=== PATIENT | female | born 1960 | race Caucasian/White ===

== ENCOUNTER → 2017-09-09 | Outpatient (CLI) | payer MEDICARE ==
--- NOTE | 2017-09-09 16:11 | BD ---
EXAMINATION TYPE: MG DEXA axial skeleton. DATE OF EXAM: 09/09/2017 COMPARISON: NONE CLINICAL HISTORY: post menopausal Height: 5' Weight: 175 FRAX RISK QUESTIONS: Alcohol (3 or more units per day): no Family History (Parent hip fracture): no Glucocorticoids (More than 3mos): no (Ex: prednisone, prednisolone, methylprednisolone, dexamethasone, and hydrocortisone). History of Fracture in Adulthood: yes Secondary Osteoporosis: 1. Type 1 Diabetes: no 2. Hyperthyroidism: no 3. Menopause before 45: no 4. Malnutrition: no 5. Chronic liver disease: no Rheumatoid Arthritis: no Current Tobacco Use: no RISK FACTORS HISTORY OF: History of Wrist Fracture: rt When: age 47 Postmenopausal woman: MEDICATIONS: Additional Medications: type 2 diabetes, cholesterol Additional History: EXAM MEASUREMENTS: Bone mineral densitometry was performed using the [employer] System. Bone mineral density as measured about the Lumbar spine is: ----- L1-L4(G/cm2): 1.404 T Score Values are as follows: ----- L2: 1.9 ----- L3: 2.0 ----- L4: 1.7 ----- L1-L4: 1.9 Bone mineral density about the R hip (g/cm2): 1.080 Bone mineral density about the L hip (g/cm2): 1.099 T Score values are as follows: -----R Neck: 0.3 -----L Neck: 0.4 -----R Total: 2.9 -----L Total: 2.6 IMPRESSION: Normal (Values between +1 and -1 indicate normal bone mass). Consider repeating this study in 5 year s or sooner if there is some new clinical indication. NOTE: T-SCORE=SD OF THE YOUNG ADULT MEAN.
--- NOTE | 2017-09-10 14:32 | MM ---
Reason for exam: screening (asymptomatic). Last mammogram was performed 1 year and 2 months ago. History: Patient is postmenopausal and is nulliparous. Taking hormonal contraceptives for 31 years beginning at age 20. Physical Findings: A clinical breast exam by your physician is recommended on an annual basis and results should be correlated with mammographic findings. MG 3D Screening Mammo W/Cad Bilateral CC and MLO view(s) were taken. Prior study comparison: July 21, 2016, bilateral MG 3d screening mammo w/cad. July 18, 2015, bilateral MG screening mammo w CAD. The breast tissue is extremely dense which could obscure a lesion on mammography. No significant changes when compared with prior studies. ASSESSMENT: Benign, BI-RAD 2 RECOMMENDATION: Routine screening mammogram of both breasts in 1 year.
== END | disposition home or self-care (01) ==
LOC: RADMAMWWP 13:42
PROVIDERS: ATTEND Family Medicine
DX: Z12.31 Encounter for screening mammogram for malignant neoplasm of breast (principal); Z78.0 Asymptomatic menopausal state
CPT/HCPCS: 77080; 77063; G0202

== ENCOUNTER → 2019-01-24 | Outpatient (CLI) | payer MEDICARE ==
--- NOTE | 2019-01-26 09:10 | MM ---
Reason for exam: screening (asymptomatic). Last mammogram was performed 1 year and 5 months ago. History: Patient is postmenopausal and is nulliparous. Taking hormonal contraceptives for 31 years beginning at age 20. Physical Findings: A clinical breast exam by your physician is recommended on an annual basis and results should be correlated with mammographic findings. MG 3D Screening Mammo W/Cad Bilateral CC and MLO view(s) were taken. Prior study comparison: September 09, 2017, bilateral MG 3d screening mammo w/cad. July 21, 2016, bilateral MG 3d screening mammo w/cad. The breast tissue is heterogeneously dense. This may lower the sensitivity of mammography. No significant changes when compared with prior studies. ASSESSMENT: Negative, BI-RAD 1 RECOMMENDATION: Routine screening mammogram of both breasts in 1 year.
== END | disposition home or self-care (01) ==
LOC: RADMAMWWP 12:40
PROVIDERS: ATTEND Family Medicine
DX: Z12.31 Encounter for screening mammogram for malignant neoplasm of breast (principal)
CPT/HCPCS: 77063; 77067

== ENCOUNTER → 2021-06-10 | Outpatient (CLI) | payer MEDICARE ==
--- NOTE | 2021-06-11 08:35 | MM ---
Reason for exam: screening (asymptomatic). Last mammogram was performed 2 years and 4 months ago. History: Patient is postmenopausal and is nulliparous. Took hormonal contraceptives for 31 years beginning at age 20. Physical Findings: A clinical breast exam by your physician is recommended on an annual basis and results should be correlated with mammographic findings. MG Screening Mammo w CAD Bilateral CC and MLO view(s) were taken. Prior study comparison: January 24, 2019, bilateral MG 3d screening mammo w/cad. September 09, 2017, bilateral MG 3d screening mammo w/cad. The breast tissue is heterogeneously dense. This may lower the sensitivity of mammography. ASSESSMENT: Negative, BI-RAD 1 RECOMMENDATION: Routine screening mammogram of both breasts in 1 year.
== END | disposition home or self-care (01) ==
LOC: RADMAMWWP 12:09
PROVIDERS: ATTEND Family Medicine
DX: Z12.31 Encounter for screening mammogram for malignant neoplasm of breast (principal); Z78.0 Asymptomatic menopausal state; Z79.3 Long term (current) use of hormonal contraceptives
CPT/HCPCS: 77067

== ENCOUNTER → 2022-08-08 | Outpatient (CLI) | payer MEDICARE ==
--- NOTE | 2022-08-12 08:12 | MM ---
Reason for Exam: Screening (asymptomatic). Last mammogram was performed 1 year(s) and 2 month(s) ago. Patient History: Menarche at age 14. Patient has no children. Postmenopausal. Currently using Hormonal Contraceptives, beginning at age 20 for 31 years. Risk Values: Rossana 5 year model risk: 1.5%. NCI Lifetime model risk: 8.3%. Prior Study Comparison: 07/18/2015 Bilateral Screening Mammogram, [facility]. 07/21/2016 Bilateral Screening Mammogram, [facility]. 09/09/2017 Bilateral Screening Mammogram, [facility]. 01/24/2019 Bilateral Screening Mammogram, [facility]. 06/10/2021 Bilateral Screening Mammogram, [facility]. Tissue Density: The breast tissue is extremely dense which could obscure a lesion on mammography. Findings: Analyzed By CAD. There is no suspicious group of microcalcifications or new suspicious mass in either breast. Overall Assessment: Negative, BI-RAD 1 Management: Screening Mammogram of both breasts in 1 year. A clinical breast exam by your physician is recommended on an annual basis and results should be correlated with mammographic findings. Electronically signed and approved by: Reginaldo Alan DO
== END | disposition home or self-care (01) ==
LOC: RADMAMWWP 13:20
PROVIDERS: ATTEND Family Medicine
DX: Z12.31 Encounter for screening mammogram for malignant neoplasm of breast (principal); Z78.0 Asymptomatic menopausal state
CPT/HCPCS: 77063; 77067

== ENCOUNTER → 2024-08-22 | Outpatient (CLI) | payer MEDICARE ==
--- NOTE | 2024-08-22 15:10 | BD ---
EXAMINATION TYPE: Axial Bone Density DATE OF EXAM: 08/22/2024 CLINICAL HISTORY: 63 years old Female. ICD-10 CODE: Z78.0 ASYMPTOMATIC MENOPAUS Height: 59.7in Weight: 212lb FRAX RISK QUESTIONS: History of Fracture in Adulthood: yes Secondary Osteoporosis: RISK FACTORS HISTORY OF: History of Wrist Fracture: right wrist When: about 20 years ago Surgery to Spine/Hip(right/left)/Wrist (right/left): right wrist When: about 20 years ago MEDICATIONS: EXAM MEASUREMENTS: Bone mineral densitometry was performed using the [employer] System. Bone mineral density as measured about the Lumbar spine is: ----- L1-L4(G/cm2): 1.548 T Score Values are as follows: ----- L1: 4.7 ----- L2: 4.8 ----- L3: 2.7 ----- L4: 1.0 ----- L1-L4: 3.1 Z Score Values are as follows: ----- L1: 5.0 ----- L2: 5.1 ----- L3: 3.0 ----- L4: 1.3 ----- L1-L4: 3.4 Bone mineral density has: Increased 10.3% since study of: 09-09-17 Bone mineral density about the R hip (g/cm2): 1.287 Bone mineral density about the L hip (g/cm2): 1.292 T Score values are as follows: -----R Neck: -0.1 -----L Neck: 0.2 -----R Total: 2.2 -----L Total: 2.3 Z Score values are as follows: -----R Neck: 0.6 -----L Neck: 0.8 -----R Total: 2.5 -----L Total: 2.5 Bone mineral density has: Decreased -6.4% since study of: 09-09-17 FRAX%s: The graph provided illustrates a 9.7% chance for a major osteoporotic fx and a 0.2% chance fo r the hips probability for fx in 10 years time. IMPRESSION: Normal (Values between +1 and -1 indicate normal bone mass). Consider repeating this study in 5 year s or sooner if there is some new clinical indication. NOTE: T-SCORE=SD OF THE YOUNG ADULT MEAN. [facility], , 08/22/2024 3:07 PM
--- NOTE | 2024-08-23 09:38 | MM ---
Reason for Exam: Screening (asymptomatic). Last screening mammogram was performed 12 month(s) ago. Patient History: Menarche at age 14. Patient has no children. Postmenopausal. Currently using Hormonal Contraceptives, beginning at age 20 for 31 years. Risk Values: Rossana 5 year model risk: 1.6%. NCI Lifetime model risk: 7.9%. Prior Study Comparison: 06/10/2021 Bilateral Screening Mammogram, [facility]. 08/08/2022 Bilateral MG 3D screening mammo w/cad, [facility]. 08/21/2023 Bilateral MG 3D screening mammo w/cad, [facility]. Tissue Density: The breasts are heterogeneously dense, which may obscure small masses. Findings: Analyzed By CAD. There is no suspicious group of microcalcifications or new suspicious mass in either breast. Overall Assessment: Benign, BI-RAD 2 Management: Screening Mammogram of both breasts in 1 year. . Patient should continue monthly self-breast exams. A clinical breast exam by your physician is recommended on an annual basis. This exam should not preclude additional follow-up of suspicious palpable abnormalities. Note on Rossana scores and lifetime risk: 1. A Rossana score greater than 3% is considered moderate risk. If this is the case, consider specialist referral to assess eligibility for a risk reducing agent. 2. If overall lifetime risk for the development of breast cancer is 20% or higher, the patient may qualify for future screening with alternating mammogram and breast MRI. [facility], , 08/23/2024 9:36 AM. Electronically signed and approved by: Sae Alaniz M.D. Radiologis
== END | disposition home or self-care (01) ==
LOC: RADBDWWP 13:08
PROVIDERS: ATTEND Family Medicine
DX: Z12.31 Encounter for screening mammogram for malignant neoplasm of breast (principal); R92.333 Mammographic heterogeneous density, bilateral breasts; Z78.0 Asymptomatic menopausal state
CPT/HCPCS: 77063; 77067; 77080

== ENCOUNTER 2025-03-13 21:39 | Emergency (ER) | payer MEDICARE ==
--- NOTE | 2025-03-13 21:57 | ED ---
Dizziness HPI - General Chief Complaint: Dizziness Stated Complaint: Verttigo Time Seen by Provider: 03/13/25 21:47 Source: patient, EMS, RN notes reviewed, old records reviewed Mode of arrival: EMS Limitations: no limitations - History of Present Illness Initial Comments: This is a 64 female to the ER for evaluation this patient presents today for evaluation regards to dizziness concern for dehydration vertiginous symptoms mild nausea no vomiting no travel no sick contacts no other complaints patient is actually feeling improved on arrival to the ER MD Complaint: dizziness, near syncope -: hour(s) Timing: gradual onset Description: "room spinning", lightheadedness, off-balance History of Same: No History of Trauma: No Severity: mild Improves With: remaining still Worsens With: nothing Associated Symptoms: denies other symptoms - Related Data Previous Rx's Medication Instructions Recorded Meclizine [Antivert] 25 mg PO TID #30 tab 03/13/25 Allergies Allergy/AdvReac Type Severity Reaction Status Date / Time No Known Allergies Allergy Verified 03/13/25 21:46 Review of Systems ROS Statement: Those systems with pertinent positive or pertinent negative responses have been documented in the HPI. ROS Other: All systems not noted in ROS Statement are negative. Past Medical History Past Medical History: Diabetes Mellitus, Seizure Disorder Additional Past Medical History / Comment(s): no issues in years History of Any Multi-Drug Resistant Organisms: None Reported Additional Past Surgical History / Comment(s): cleft palate at Past Psychological History: No Psychological Hx Reported Smoking Status: Never smoker Past Alcohol Use History: None Reported Past Drug Use History: None Reported General Exam Limitations: no limitations General appearance: alert, in no apparent distress Head exam: Present: atraumatic, normocephalic, normal inspection Eye exam: Present: normal appearance, PERRL, EOMI. Absent: scleral icterus, conjunctival injection, periorbital swelling ENT exam: Present: normal exam, mucous membranes moist Neck exam: Present: normal inspection. Absent: tenderness, meningismus, lymphadenopathy Respiratory exam: Present: normal lung sounds bilaterally. Absent: respiratory distress, wheezes, rales, rhonchi, stridor Cardiovascular Exam: Present: regular rate, normal rhythm, normal heart sounds. Absent: systolic murmur, diastolic murmur, rubs, gallop, clicks GI/Abdominal exam: Present: soft, normal bowel sounds. Absent: distended, tenderness, guarding, rebound, rigid Extremities exam: Present: normal inspection, full ROM, normal capillary refill. Absent: tenderness, pedal edema, joint swelling, calf tenderness Back exam: Present: normal inspection Neurological exam: Present: alert, oriented X3, CN II-XII intact Psychiatric exam: Present: normal affect, normal mood Skin exam: Present: warm, dry, intact, normal color. Absent: rash Course Vital Signs 03/13/25 03/13/25 21:47 23:42 Temperature 97.5 F L 97.6 F Pulse Rate 81 91 Respiratory 16 18 Rate Blood Pressure 136/79 150/94 O2 Sat by Pulse 96 98 Oximetry - Reevaluation(s) Reevaluation #1: Medical records reviewed Reevaluation #2: Patient's symptoms improved Reevaluation #3: Patient informed of results and questions answered Reevaluation #4: Was pt. sent in by a medical professional or institution (, PA, BRIDGE WORKER APPRENTICE, urgent care, hospital, or prison...) When possible be specific @ -no Did you speak to anyone other than the patient for history (EMS, parent, family, police, friend...)? What history was obtained from this source @ -no Did you review nursing and triage notes (agree or disagree)? Why? @ -agree Are old charts reviewed (outside hosp., previous admission, EMS record, old EKG, old radiological studies, urgent care reports/EKG's, prison records)? Report findings @ -yes Differential Diagnosis (chest pain, altered mental status, abdominal pain women, abdominal pain men, vaginal bleeding, weakness, fever, dyspnea, syncope, headache, dizziness, GI bleed, back pain, seizure, CVA, palpatations, mental health, musculoskeletal)? @ -prior EKG interpreted by me (3pts min.). @ -no X-rays interpreted by me (1pt min.). @ -no CT interpreted by me (1pt min.). @ -no U/S interpreted by me (1pt. min.). @ -no What testing was considered but not performed or refused? (CT, X-rays, U/S, labs)? Why? @ -none What meds were considered but not given or refused? Why? @ -none Did you discuss the management of the patient with other professionals (professionals i.e. , PA, BRIDGE WORKER APPRENTICE, lab, RT, psych nurse, geriatric social work professor, cessation systems outreach specialist, teacher, svp chief marketing officer, family independence case manager)? Give summary @ -no Was smoking cessation discussed for >3mins.? @ -no Was critical care preformed (if so, how long)? @ -no Were there social determinants of health that impacted care today? How? (Homelessness, low income, unemployed, alcoholism, drug addiction, transportation, low edu. Level, literacy, decrease access to med. care, shelter, rehab)? @ -none Was there de-escalation of care discussed even if they declined (Discuss DNR or withdrawal of care, Hospice)? DNR status @ -no What co-morbidities impacted this encounter? (DM, HTN, Smoking, COPD, CAD, Cancer, CVA, ARF, Chemo, Hep., AIDS, mental health diagnosis, sleep apnea, morbid obesity)? @ -none Was patient admitted / discharged? Hospital course, mention meds given and route, prescriptions, significant lab abnormalities, going to OR and other pertinent info. @ - 64 female for dizziness and dehydration, symptoms are dramatically improved here in the ER patient's feels well and can be discharged home Discharge Undiagnosed new problem with uncertain prognosis? @ -no Drug Therapy requiring intensive monitoring for toxicity (Heparin, Nitro, Insulin, Cardizem)? @ -no Were any procedures done? @ -no Diagnosis/symptom? @ -Dizziness and dehydration Acute, or Chronic, or Acute on Chronic? @ -Acute Uncomplicated (without systemic symptoms) or Complicated (systemic symptoms)? @ -Complicated Side effects of treatment? @ -no Exacerbation, Progression, or Severe Exacerbation? @ -exacerbation Poses a threat to life or bodily function? How? (Chest pain, USA, VT, pneumonia, PE, COPD, DKA, ARF, appy, cholecystitis, CVA, Diverticulitis, Homicidal, Suicidal, threat to staff... and all critical care pts) @ -no Reevaluation #5: Differential Dizziness: Benign paroxysmal positional Vertigo, Meniere's disease, otitis media, acoustic neuroma, vertebrobasilar insufficiency, cerebellar stroke, encephalitis, hypovolemic, arrhythmia, coronary artery syndrome, anemia, this is not meant to be an all-inclusive list Medical Decision Making - Medical Decision Making 64 female for dizziness and dehydration, symptoms are dramatically improved here in the ER patient's feels well and can be discharged home Disposition Clinical Impression: Dehydration Disposition: HOME SELF-CARE Condition: Fair Instructions (If sedation given, give patient instructions): Dizziness (ED) Prescriptions: Meclizine [Antivert] 25 mg PO TID #30 tab Is patient prescribed a controlled substance at d/c from ED?: No Referrals: Stacy Tijerina MD [Primary Care Provider] - 1-2 days Time of Disposition: 23:00
[2025-03-13] MEDS: SODIUM CHLORIDE 0.9% 1,000 ML IV ONE (22:06)
[2025-03-13] MEDS: ONDANSETRON 4 MG/2 ML VIAL IVP STA (22:08)
[2025-03-13] MEDS: diphenhydrAMINE 50 MG/ML 1 ML VIAL IVP STA (22:09)
[2025-03-13] MEDS: MECLIZINE 12.5 MG TAB PO STA (23:05)
[2025-03-13] MEDS: ONDANSETRON 4 MG ODT STARTER PACK 2 TAB BTL PO STA (23:06)
[2025-03-13 23:43] VITALS: BP 150/94; PULSE 91; RESP 18; TEMP 97.6
== END 2025-03-13 23:43 | disposition home or self-care (01) ==
LOC: EC 21:39
DX: R42 Dizziness and giddiness (principal); E86.0 Dehydration
CPT/HCPCS: 99284; 96374; 96375 ×2; 96361 ×2; J1200; J3360; J2405; S0119